=== PATIENT | male | born 1980 | race Caucasian/White ===

== ENCOUNTER 2018-07-21 22:32 | Emergency (ER) | payer BC, OTHER ==
[~2018-07-21] VITALS: Ht 175.3 cm; Wt 111.4 kg
[~2018-07-21 22:32] MED LIST: CIPRO 500MG TA500 MG PO; HYTRIN 2MG CAPSU2 MG PO; MOTRIN 800800 MG/TAB PO; NORCO 325 MG-51 TAB PO; PERCOCET 325 MG1 TA2 PO; VENLAFAXINE225 MG PO; ZANTAC 150MG T150 MG
[2018-07-21 22:38] VITALS: BP 145/83; TEMP 98.2
[2018-07-22 00:15] VITALS: PULSE 73
[2018-07-22] MEDS ORDERED: LIPITOR 40MG TA40 MG PO (00:15)
== END 2018-07-22 00:16 | disposition home or self-care (01) ==
LOC: COL.ER 22:32
DX: S05.91XA Unspecified injury of right eye and orbit, initial encounter (principal); W22.8XXA Striking against or struck by other objects, initial encounter

== ENCOUNTER 2019-09-04 00:17 | Emergency (ER) | payer BC, OTHER ==
[~2019-09-04] VITALS: Ht 177.8 cm; Wt 113.6 kg
[~2019-09-04 00:17] MED LIST changes: +LIPITOR 40MG TA40 MG PO
[2019-09-04 00:27] VITALS: TEMP 97.8
[2019-09-04] MEDS ORDERED: PEPCID 20MG TAB20 MG PO (00:31)
[2019-09-04 01:32] LABS: BASO % 0.5 % (0.0-2.0); EOS # 0.1 (0.0-0.7); EOS % 1.9 % (0-4.0); GRAN # 4.5 (1.4-6.5); GRAN % 59.4 % (42.2-75.2); HEMATOCRIT 44.6 % (42.0-52.0); LYMPH # 2.2 (1.2-3.4); LYMPH % 29.2 % (20.0-51.0); MEAN CELL VOLUME 90 fl (80.0-100.0); MEAN CORPUSCULAR HEMOGLOBIN 30 pg (27.0-31.0); MEAN CORPUSCULAR HGB CONC 34 g/dl (33.0-37.0); MEAN PLATELET VOLUME 8.6 fl (7.4-10.4); MONO # 0.6 (0.1-0.6); MONO % 8.1 % (1.7-9.3); PLATELET COUNT 360 K/mm3 (130-400); RED BLOOD COUNT 4.98 M/mm3 (4.20-5.60); REDCELL DISTRIBUTION WIDTH-CV 12.2 % (11.5-14.5)
[2019-09-04 01:43] LABS: ALANINE AMINOTRANSFERASE 33 U/L (21-72); ALBUMIN 4.9 gm/dL (3.5-5.0); ALKALINE PHOSPHATASE 83 U/L (50-136); ANION GAP 13 mmol/L (7-16); AST,SGOT 30 U/L (15-37); BILIRUBIN,TOTAL 0.4 mg/dL (0.0-1.0); BLOOD UREA NITROGEN 16 mg/dL (9-20); CARBON DIOXIDE 24 mmol/L (22-30); CHLORIDE 105 mmol/L (98-107); CREATININE, serum 0.86 (0.66-1.25); GLUCOSE 124 mg/dL (74-106); POTASSIUM 4.3 mmol/L (3.4-5.0); SODIUM 142 mmol/L (137-145); TOTAL PROTEIN 8.7 gm/dL (6.4-8.2)
[2019-09-04 01:54] LABS: TROPONIN-I < 0.012 ng/mL (0.000-0.035)
[2019-09-04] MEDS ORDERED: ZITHROMAX 250M250 MG PO (02:33)
[2019-09-04 03:15] VITALS: BP 145/106; PULSE 86
== END 2019-09-04 03:15 | disposition home or self-care (01) ==
LOC: COL.ER 00:17
PROVIDERS: Nurse Practitioner
DX: J20.9 Acute bronchitis, unspecified (principal); F43.10 Post-traumatic stress disorder, unspecified
CPT/HCPCS: J8540

== ENCOUNTER 2020-11-30 11:43 | Emergency (ER) | payer BC, OTHER ==
[~2020-11-30] VITALS: Ht 182.9 cm; Wt 120.5 kg
[~2020-11-30 11:43] MED LIST changes: +PEPCID 20MG TAB20 MG PO; +PREDNISONE20 MG PO; +ZITHROMAX 250M250 MG PO
[2020-11-30 12:09] VITALS: TEMP 98.3
[2020-11-30] MEDS ORDERED: PERCOCET 325 MG1 TA2 PO ×2 (14:15→14:18)
[2020-11-30 14:39] VITALS: BP 145/99; PULSE 67
== END 2020-11-30 14:39 | disposition home or self-care (01) ==
LOC: COL.ER 11:43
DX: M54.16 Radiculopathy, lumbar region (principal)
CPT/HCPCS: J1885; J2270

== ENCOUNTER 2020-12-07 10:10 | Emergency (ER) | payer BC, OTHER ==
[~2020-12-07] VITALS: Ht 182.9 cm; Wt 118.2 kg
[2020-12-07 10:23] VITALS: BP 137/99; TEMP 98.3
[2020-12-07] MEDS ORDERED: MEDROL 4MG DOSPA4 MG PO (11:29)
[2020-12-07] MEDS ORDERED: PERCOCET 325 MG1 TA2 PO (11:30)
[2020-12-07 12:00] VITALS: PULSE 90
== END 2020-12-07 12:00 | disposition home or self-care (01) ==
LOC: COL.ER 10:10
DX: M51.16 Intervertebral disc disorders with radiculopathy, lumbar region (principal); I10 Essential (primary) hypertension
CPT/HCPCS: J1885; J2270

== ENCOUNTER 2022-03-12 07:21 | Emergency (ER) | payer BC, OTHER ==
[~2022-03-12] VITALS: Ht 182.9 cm; Wt 122.7 kg
[~2022-03-12 07:21] MED LIST changes: +MEDROL 4MG DOSPA4 MG PO
[2022-03-12 07:28] VITALS: BP 145/80; TEMP 97.7
[2022-03-12] MEDS ORDERED: ILOTYCIN5 MG/GM OP (07:45)
[2022-03-12 08:24] VITALS: PULSE 73
== END 2022-03-12 08:24 | disposition home or self-care (01) ==
LOC: COL.ER 07:21
DX: S05.02XA Injury of conjunctiva and corneal abrasion without foreign body, left eye, initial encounter (principal); Z28.310 Unvaccinated for COVID-19; X58.XXXA Exposure to other specified factors, initial encounter